=== PATIENT | male | born 1995 | race Caucasian/White ===

== ENCOUNTER → 2020-04-02 | Outpatient (CLI) | payer BC | LOC: COL.RAD 14:15 | DX: E05.90 Thyrotoxicosis, unspecified without thyrotoxic crisis or storm (principal) ==

== ENCOUNTER → 2024-06-09 | Outpatient (CLI) | payer SELFPAY ==
[~2024-06-09] VITALS: Ht 175.3 cm; Wt 80.4 kg
[~2024-06-09] MED LIST: EXCEDRIN1 TAB PO; PRILOSEC 20MG20 MG PO; Regadenoson 0.08 MG/ML 5 ML SYRINGE IV SCH
[2024-06-09 09:00] VITALS: BP 130/82; PULSE 67; TEMP 97.9
[2024-06-09 10:15] VITALS: BP 122/76; PULSE 118
[2024-06-09 10:16] VITALS: BP 125/83; PULSE 94
[2024-06-09 10:17] VITALS: BP 131/82; PULSE 100
== END ==
LOC: COL.RAD 00:18 → COL.CARD 09:00 → COL.RAD 09:08
DX: I48.0 Paroxysmal atrial fibrillation (principal)
CPT/HCPCS: A9500-JZ; J2785